=== PATIENT | male | born 1970 | race Caucasian/White ===

== ENCOUNTER 2024-08-26 02:29 | Emergency (ER) | payer MEDICAID, SELFPAY ==
[2024-08-26 02:31] VITALS: BMI 24.4
[2024-08-26 03:08] VITALS: BP 147/78; RESP 18; TEMP 37.3; O2SAT 97
--- NOTE | 2024-08-26 03:10 | XR_ITS ---
Examination: Fingers, left hand fourth digit 3 views Technique: AP, oblique, lateral views left hand for digits 3 views. Exam date and time: August 26, 2024 0317 hours INDICATIONS: Redness swelling and pain involving the fourth digit beginning 2 days ago. FINDINGS: Soft tissue swelling about the fourth digit No fracture. No foreign body. No cortical bone destruction IMPRESSION: No cortical bone destruction or foreign body
--- NOTE | 2024-08-26 03:12 | PD.EDHAND ---
Upper Extremity Injury RME/HPI General Chief Complaint: Hand/Wrist Problems Stated Complaint: FINGER INFECTION Time Seen by Provider: 08/26/24 03:09 Arrival date/time: 08/26/24 02:29 54M with history of drug use presents to ED with 2 days of L ring finger pain, swelling, and redness. Patient cannot remember inciting event but may have poked himself accidentally a few weeks ago. Limitations: no limitations Related Data Previous Rx's ?Medication ?Instructions ?Recorded Sulfamethoxazole/Trimethoprim DS * 1 tab PO BID Infection #14 tabs 01/15/17 (BACTRIM DS *) sulfamethoxazole 800 1 tab PO BID #20 tabs 03/21/23 mg-trimethoprim 160 mg tablet (Bactrim DS) Allergies Allergy/AdvReac Type Severity Reaction Status Date / Time NKA* Allergy Uncoded 08/26/24 02:35 Review of Systems Review of Systems Systems Reviewed: All systems reviewed, normal except as documented Constitutional Constitutional: Reports system reviewed and no additional complaints, except as documented, Denies fever(s) and Denies headache(s) ENT Ears, Nose, Mouth, and Throat: Denies disequilibrium and Denies headache(s) Cardiovascular Cardiovascular: Reports system reviewed and no additional complaints, except as documented, Denies chest pain and Denies dyspnea Respiratory Respiratory: Reports system reviewed and no additional complaints, except as documented, Denies cough and Denies dyspnea Gastrointestinal Gastrointestinal: Reports system reviewed and no additional complaints, except as documented, Denies abdominal pain, Denies nausea and Denies vomiting Integumentary/Breasts Skin/Breast: Reports as per HPI and Reports skin pain Neurologic Neurologic: Reports system reviewed and no additional complaints, except as documented, Denies confusion, Denies disequilibrium and Denies headache(s) Psychiatric Psychiatric: Denies confusion Past Medical History Past Medical History CARDIAC: Negative Congestive Heart Failure RESPIRATORY: Negative Chronic Obstructive Pulmonary Disease (COPD) GENITOURINARY: Negative Renal Disease ENDOCRINE: Negative Diabetes Mellitus Type 1 or Diabetes Mellitus Type 2 Social History SMOKING STATUS: Current every day smoker ED Exam General Limitations: Present no limitations General appearance: Present alert and in no apparent distress Head Head exam: Present atraumatic Eye Eye exam: Present normal appearance, PERRL and EOMI ENT ENT exam: Present normal exam, normal oropharynx and mucous membranes moist Neck Neck exam: Present normal inspection, full ROM and trachea midline Chest Chest inspection: Present normal inspection and symmetric chest wall rise Respiratory Respiratory exam: Present normal lung sounds bilaterally Cardiovascular Cardiovascular exam: Present regular rate, normal rhythm and normal heart sounds Abdominal Exam Abdominal exam: Present soft and normal bowel sounds Extremities Exam Extremities exam: Present full ROM Expanded Upper Extremity Exam Hand exam: Present full ROM (L ring finger), tenderness, swelling and erythema Back Exam Back exam: Present normal inspection and full ROM Neurological Exam Neurological exam: Present alert, oriented X3 and CN II-XII intact Psychiatric Psychiatric exam: Present normal affect and normal mood Skin Skin exam: Present warm, dry, intact and normal color Course Quality Measures none Orders Category Date Time Status Insert IV NOW Care 08/26/24 03:10 Completed XR finger LT min 2V Stat Exams 08/26/24 03:10 Completed Blood Culture (Lab) Stat Lab 08/26/24 03:40 Results CBC Stat Lab 08/26/24 03:35 Completed CMP [Comprehensive Metabolic Panel] Stat Lab 08/26/24 03:35 Completed CRP [C-Reactive Protein] Stat Lab 08/26/24 03:35 Completed ESR [Sed Rate (ESR)] Stat Lab 08/26/24 03:35 Completed Lactate (Lactic Acid) Stat Lab 08/26/24 03:35 Completed Procalcitonin Stat Lab 08/26/24 03:35 Completed Potassium Chloride [K-Dur] Med 08/26/24 05:31 Discontinued 40 meq PO X1 ONE Vancomycin Inj 1,000 mg Med 08/26/24 03:10 Discontinued Sodium Chloride 0.9% 250 ml [Ns] 250 ml IV X1 cefTRIAXone/D5w 1gm IV premix [Rocephin/D5w 1gm IV Med 08/26/24 03:11 Discontinued premix] 1 gm in 50 ml IV X1 Vital Signs Vital signs: Vital Signs Temperature 99.1 F 08/26/24 03:08 Respiratory Rate 18 08/26/24 03:08 Blood Pressure 147/78 H 08/26/24 03:08 Pulse Oximetry (%) 97 08/26/24 03:08 Oxygen Delivery Method Room Air 08/26/24 03:08 O2 at 97% on RA and WNLs Extremity Injury MDM Narrative MDM Narrative:: 54M with history of drug use presents to ED with 2 days of L ring finger pain, swelling, and redness. Patient cannot remember inciting event but may have poked himself accidentally a few weeks ago. Physical exam reveals L ring finger swelling, redness, and tenderness. Cap refill normal. Pain with passive and active ROM. Patient is afebrile, calm, and alert. Wet XR read no fx or FB pending official report. Minimal leukocytosis and elevation in CRP/ESR. Procal/lactate normal. K mildly low, repleted. Care signed out to colleague. Apparently, patient eloped afterward. Patient data External records reviewed:: [facility] previous records Clinical information provided by:: patient Social determinants that could affect healthcare access:: substance use Patient has the following chronic illnesses:: drug use How is presenting disease/condition affected by chronic disease/condition?: exacerbated by Evaluation data The following diagnostics were reviewed and interpreted by me:: lab results and radiology exam(s) Lab and/or radiology exams considered but not ordered:: ordered Interpretation Summary: above Medications / Prescriptions Medications or Prescriptions considered but not ordered:: ordered Medication administrations:: Medication Administration History Discontinued Medications Vancomycin HCl 1,000 mg/ (Sodium Chloride) 250 mls @ 150 mls/hr IV X1 ONE Stop: 08/26/24 04:49 Ceftriaxone Sodium/Dextrose (Rocephin/D5w 1gm Iv Premix) 1 gm in 50 mls @ 100 mls/hr IV X1 ONE Stop: 08/26/24 03:40 Potassium Chloride (Potassium Chloride 20 Meq Tabcr) 40 meq PO X1 ONE Stop: 08/26/24 05:32 above Consultations Consultation(s) initiated? (list below): Yes Diagnosis Upper Extremity Injury Differential Diagnosis: finger sprain, dislocation of finger and other (flexor tenosynovitis) Most likely diagnosis given after review of the tests above:: flexor tenosynovitis Admission Indicated Admission indicated?: not indicated Admission Request Was there a request for admission?: No Disposition Plan Disposition Plan: other (specify) (eloped) Discharge Plan Plan Patient Disposition: Elopement Prescriptions/Referrals Prescriptions/Med Rec: No Action Sulfamethoxazole/Trimethoprim DS * (BACTRIM DS *) 1 TAB tablet 1 tab PO BID Qty: 14 0RF sulfamethoxazole-trimethoprim [Bactrim DS] 800-160 mg tablet 1 tab PO BID Qty: 20 0RF Referrals: No Primary/Family,Physician [Primary Care Provider] - In 1 week Problem List Clinical Impression: Flexor tenosynovitis of finger Patient/Caregiver Discharge Instructions Print Language: Albanian PA/ELECTRONICS PROCESSING SUPERVISOR Supervising Physician PA/ELECTRONICS PROCESSING SUPERVISOR Supervising Physician: Dr. Adams
[2024-08-26 03:43] LABS: Lactate (Lactic Acid) 1.1 mMol/L (0.4-2.0)
[2024-08-26 03:45] LABS: Basophils # (Auto) 0.1 Thou/mm3 (0.0-0.2); Basophils % (Auto) 1 % (0-2.5); Eosinophils # (Auto) 0.3 Thou/mm3 (0.0-0.5); Eosinophils % (Auto) 3 % (0-10); Hematocrit 32.4 % (41.0-53.0); Hemoglobin 11.4 g/dL (13.5-16.0); Immature Granulocytes % (Auto) 1 % (0-0); Immature Granulocytes Auto 0.05 Thou/mm3 (0.00-0.00); Lymphocytes # (Auto) 2.9 Thou/mm3 (1.0-4.8); Lymphocytes % (Auto) 26 % (10-50); Mean Corpuscular HGB Conc 35.2 g/dl (31.0-37.0); Mean Corpuscular Volume 85 fL (80-100); Monocytes % (Auto) 9 % (0-12); Neutrophils # (Auto) 6.8 Thou/mm3 (1.8-7.7); Neutrophils % (Auto) 62 % (37-80); Nucleated Red Blood Cell % 0 /100 WBC (0); Platelet Count 250 Thou/mm3 (140-440); RDW Standard Deviation 41.6 fL (35.1-43.9)
[2024-08-26 03:52] LABS: Sed Rate (ESR) 31 mm/hr (0-20)
[2024-08-26 04:59] LABS: Alanine Aminotransferase 27 U/L (10-49); Albumin, Serum 4.1 gm/dL (3.5-5.0); Albumin/Globulin Ratio 1.8 (1.2-2.2); Alkaline Phosphatase 80 U/L (46-116); Anion Gap 11 (7-16); BUN/Creatinine Ratio 24 Ratio (12-20); Bilirubin,Total 0.4 mg/dL (0.3-1.2); Blood Urea Nitrogen 22 mg/dL (9-23); Calcium 9.3 mg/dL (8.3-10.6); Calcium (Corrected) 9.3 mg/dL (8.5-10.1); Carbon Dioxide 23.4 mMol/L (20.0-31.0); Chloride 107 mMol/L (98-107); Creatinine (Component) 0.9 mg/dL (0.6-1.3); Estimated Creatinine Clearance 105.4 mL/min (>60); Globulin 2.3 gm/dL (2.3-3.5); Glucose 96 mg/dL (74-106); Osmolality,Calculated 284 (275-295); Potassium 3.2 mMol/L (3.4-5.1); Procalcitonin 0.08 ng/ml (0.0-0.49); Sodium 141 mMol/L (136-145); Total Protein 6.4 gm/dL (5.7-8.2); eGFR > 60 See Note
[2024-08-26 05:09] LABS: C-Reactive Protein 2.8 mg/dL (0.0-0.9)
== END 2024-08-27 19:31 | disposition left against medical advice (07) ==
LOC: SERX 06:47
PROVIDERS: Physician Assistant; Emergency Provider Emergency Medicine
DX: M65.842 Other synovitis and tenosynovitis, left hand (principal); Z53.29 Procedure and treatment not carried out because of patient's decision for other reasons
CPT/HCPCS: 36415; 73140; 80053; 83605; 84145; 85025; 85652; 86140; 87040; 99281